=== PATIENT | female | born 1955 | race Caucasian/White ===

== ENCOUNTER 2017-02-06 08:16 | Inpatient (IN) | payer MEDICARE, OTHER ==
[~2017-02-06] VITALS: Ht 172.7 cm; Wt 93.4 kg
[2017-02-06 08:42] LABS: HEMOGLOBIN 12.9 gm/dl (12.3-15.3); RED BLOOD COUNT 4.49 M/UL (4.00-5.10); WHITE BLOOD COUNT 9.1 K/UL (4.5-11.0)
[2017-02-06 09:01] LABS: BUN/CREATININE RATIO 27 (0-10)
[2017-02-06] MEDS ORDERED: ZANTAC300 MG PO (16:11)
[2017-02-06] MEDS ORDERED: CELEXA40 MG PO (16:12)
[2017-02-06] MEDS ORDERED: NORVASC 5 MG TAB5 MG PO (16:12)
[2017-02-06] MEDS ORDERED: ZETIA 10 MG TAB10 MG PO (16:13)
[2017-02-06] MEDS ORDERED: LIPITOR TAB 2020 MG PO (16:14)
[2017-02-06] MEDS ORDERED: METFORMIN HCL1000 M1 PO (16:15)
[2017-02-06] MEDS ORDERED: TENORMIN 50 MG50 MG PO (16:16)
[2017-02-06] MEDS ORDERED: SYNTHROID150 MCG PO (16:17)
[2017-02-06] MEDS ORDERED: COZAAR100 MG PO (16:18)
[2017-02-06] MEDS ORDERED: ASPIR 8181 MG PO (16:19)
[2017-02-06] MEDS ORDERED: VICTOZA 1818 MG/3 ML SQ (16:19)
[2017-02-06] MEDS ORDERED: HUMALOG100 UNIT/3 SQ (16:21)
[2017-02-06] MEDS ORDERED: LEVEMIR FL100 UNIT/1 SQ (16:21)
[2017-02-07 05:51] LABS: HEMOGLOBIN 11.4 gm/dl (12.3-15.3); WHITE BLOOD COUNT 8.7 K/UL (4.5-11.0)
[2017-02-07 06:01] LABS: RED BLOOD COUNT 3.96 M/UL (4.00-5.10)
[2017-02-07 06:03] LABS: BUN/CREATININE RATIO 25 (0-10)
[2017-02-08 06:35] LABS: HEMOGLOBIN 10.4 gm/dl (12.3-15.3); RED BLOOD COUNT 3.64 M/UL (4.00-5.10); WHITE BLOOD COUNT 10.7 K/UL (4.5-11.0)
[2017-02-08 07:01] LABS: BUN/CREATININE RATIO 29 (0-10)
[2017-02-09 07:17] LABS: HEMOGLOBIN 9.5 gm/dl (12.3-15.3); RED BLOOD COUNT 3.31 M/UL (4.00-5.10); WHITE BLOOD COUNT 8.4 K/UL (4.5-11.0)
[2017-02-09 07:36] LABS: BUN/CREATININE RATIO 33 (0-10)
[2017-02-10 06:39] LABS: HEMOGLOBIN 10.4 gm/dl (12.3-15.3); WHITE BLOOD COUNT 8.5 K/UL (4.5-11.0)
[2017-02-10 06:41] LABS: RED BLOOD COUNT 3.66 M/UL (4.00-5.10)
[2017-02-10 07:01] LABS: BUN/CREATININE RATIO 28 (0-10)
== END 2017-02-11 16:30 | DRG 470 ==
LOC: ER1 08:16 → ZEROF 10:55 → M/S 10:55
PROVIDERS: Family Medicine; Orthopaedic Surgery; Physician Assistant; ADMIT Internal Medicine Infectious Disease
PROC: 0SRR01A Replacement of Right Hip Joint, Femoral Surface with Metal Synthetic Substitute, Uncemented, Open Approach (ICD-10-PCS; principal; 2017-02-07 11:45)
DX: S72.001A Fracture of unspecified part of neck of right femur, initial encounter for closed fracture (principal); S00.83XA Contusion of other part of head, initial encounter; W18.30XA Fall on same level, unspecified, initial encounter; Y92.009 Unspecified place in unspecified non-institutional (private) residence as the place of occurrence of the external cause; I25.10 Atherosclerotic heart disease of native coronary artery without angina pectoris; E11.9 Type 2 diabetes mellitus without complications; E03.9 Hypothyroidism, unspecified; E78.5 Hyperlipidemia, unspecified; K21.9 Gastro-esophageal reflux disease without esophagitis; E66.01 Morbid (severe) obesity due to excess calories; G47.33 Obstructive sleep apnea (adult) (pediatric); E83.42 Hypomagnesemia; M81.0 Age-related osteoporosis without current pathological fracture; Z95.5 Presence of coronary angioplasty implant and graft; Z72.3 Lack of physical exercise; Z68.31 Body mass index [BMI] 31.0-31.9, adult; Z79.4 Long term (current) use of insulin; Z79.84 Long term (current) use of oral hypoglycemic drugs; Z79.82 Long term (current) use of aspirin; Z79.899 Other long term (current) drug therapy; Z98.890 Other specified postprocedural states; Z82.49 Family history of ischemic heart disease and other diseases of the circulatory system; Z83.3 Family history of diabetes mellitus; Z80.3 Family history of malignant neoplasm of breast
CPT/HCPCS: ECHO; 36415; 70450; 71010; 72170; 73060; 73502; 80048; 80053; 82550; 82553; 82962; 83036; 83735; 83874; 84484; 85025; 85027; 85610; 85730; 93005; 93306; 94660; 96374; 96375; 96376; 97110; 97116; 97530; 99285; C1713; C1776; J0360; J0690; J1100; J1650; J1885; J2270; J2405; J2710; J2795; J3010; J3370; J7030; J7050; J7120